=== PATIENT | male | born 1950 | race Caucasian/White ===

== ENCOUNTER 2021-08-06 00:11 | Day surgery (SDC) | payer MEDICARE, SELFPAY ==
[2021-07-24 14:46] VITALS: BMI 39.2
--- NOTE | 2021-08-01 10:14 | PC.NURSE ---
FOLLOWED UP WITH PATIENT REGARDING OFFICE VISIT ON 07/24/21 WITH CARDIOLOGY AND SYMPTOMS OF CHF. PT STATES HE IS FEELING MUCH BETTER, EDEMA IN HIS FEET AND LEGS IS GONE, HIS SOB IS BACK TO BASELINE FOR HIM. INSTRUCTED PT THAT IF HE HAS SYMPTOMS THIS WEEKEND BEFORE STARTING HIS PREP TO CALL AND CANCEL APPT. AND SEE CARDIOLOGY FOR FURTHER TREATMENT AND INSTRUCTIONS FOR HOW TO HANDLE PREP FOR FUTURE COLONOSCOPY PREP. PT IS OKAYED TO HOLD XARELTO FOR 2 DAYS PRIOR TO PROCEDURE- LAST DOSE ON 08/03/21- PT VERBALIZES UNDERSTANDING.
--- NOTE | 2021-08-02 11:54 | SUR.PREOP ---
08/02/21 1135 Patient's chart discussed with Dr. Keith regarding the patient's low EF and him being seen on 07/24 at the Application Coordinator's office and patient in CHF but has since been treating and doing well. Dr. Keith ok for pt to proceed with procedure on Friday. No further orders received.
[2021-08-06 09:56] VITALS: BP 148/65; PULSE 62; RESP 20; TEMP 36.3; O2SAT 96; BMI 36.8
[2021-08-06] MEDS: LACTATED RINGERS 1,000 ML 150 ML IV CONT (10:13)
[2021-08-06 10:14] LABS: Glucose Point of Care 225 mg/dl (65-105)
--- NOTE | 2021-08-06 10:34 | WPDANESEPPF ---
Anes - Initial Pre Proc Eval Procedure: Operation Date: 08/06/21 11:30 Proposed Procedures p Screening Colonoscopy - Enrique Fall MD Date/Time: 08/06/21 10:34 Surgeon: Enrique Fall MD Pre Op Diagnosis: family hx of colon ca Patient Data Age: 71 Gender: M Height: 1.83 m Weight: 123.2 kg Last Vital Signs Temp 97.3 F L 08/06/21 09:56 Pulse 62 08/06/21 09:56 Resp 20 08/06/21 09:56 BP 148/65 H 08/06/21 09:56 Pulse Ox 96 08/06/21 09:56 Allergies Allergy/AdvReac Type Severity Reaction Status Date / Time No Known Allergies Allergy Verified 08/06/21 09:55 Home Medications Medication Instructions Recorded Confirmed Type nitroglycerin 0.4 mg sublingual 0.4 mg SUBLINGUAL Q5M PRN #100 11/21/20 07/24/21 Rx tablet tablet carvedilol 6.25 mg tablet See Rx Instructions .ROUTE 01/26/21 07/24/21 Rx .COMPLEX #180 tablet duloxetine 60 mg capsule,delayed See Rx Instructions .ROUTE 01/26/21 07/24/21 Rx release .COMPLEX #90 cap furosemide 40 mg tablet 40 mg PO QAM 02/14/21 07/24/21 History potassium chloride 20 mEq 20 meq PO DAILY 02/14/21 07/24/21 History tablet,extended release rivaroxaban 20 mg tablet 20 mg PO DAILY 02/14/21 07/24/21 History valsartan 80 mg tablet 80 mg PO DAILY 02/14/21 07/24/21 History atorvastatin 40 mg tablet See Rx Instructions .ROUTE 02/16/21 07/24/21 Rx .COMPLEX #90 tablet metformin 1,000 mg tablet See Rx Instructions .ROUTE 03/26/21 07/24/21 Rx .COMPLEX #180 tablet insulin glargine 100 unit/mL (3 See Rx Instructions .ROUTE 05/16/21 07/24/21 Rx mL) subcutaneous pen .COMPLEX #90 ml insulin regular human 100 unit/mL See Rx Instructions .ROUTE 05/21/21 07/24/21 Rx (3 mL) subcutaneous pen .COMPLEX #30 ml pen needle, diabetic 32 gauge x #400 ea 05/21/21 Rx albuterol sulfate [ProAir 2 inh INHALATION Q4-6H PRN 07/24/21 07/24/21 History RespiClick] amiodarone 200 mg PO DAILY 07/24/21 07/24/21 History spironolactone 25 mg PO DAILY 08/01/21 08/01/21 History Laboratory Tests 08/06/21 10:05 POC Capillary Glucose 225 mg/dl H mg/dl (65-105) Patient hx anesthesia problems: none Family hx anesthesia problems: none Results Review: All pre-operative results and documents have been reviewed as part of the pre-operative evaluation. [facility] Past Medical History Medical History CAD (coronary artery disease) Diabetes mellitus HLD (hyperlipidemia) Family History Family History Mother Patient's mother is , Onset Age: 55 Father Family history of malignant neoplasm, Onset Age: 63 Social History Social History Smoking packs per day: 0.5 Smoking cigarettes per day: 10.0 Years smoked: 10 Smoking pack-years: 5.00 Smoking status: Former smoker Tobacco type: cigarettes Smoking end date: 06/09/06 Alcohol intake: current Substance use: never Substance use type: does not use Living arrangements: with family Spiritual care concerns: No Anes - Eval Final PreProcedure Day of Procedure 08/06/21 10:34 Patient weight: obese Heart: regular rate and rhythm Lungs: clear to auscultation Airway: Mallampati scale class III Neurological: alert and oriented Last oral intake: >/= 8 hours ASA classification: IV Emergent: no Anesthetic plan: proceed Anesthesia type and monitoring: general GIVS and standard monitoring Results Review: All pre-operative results and documents have been reviewed as part of the pre-operative evaluation. Informed Consent: The patient's anesthetic plan and its attendant risks and benefits were discussed with the patient/family/POA. Questions were solicited and answers provided to the satisfaction of the patient/family/POA.
--- NOTE | 2021-08-06 10:44 | PM.HPGS ---
History of Present Illness History of Present Illness Consent: Risks, benefits, and alternatives have been discussed and questions answered. Patient agrees to proceed with procedure. Chief complaint: family hx of colon ca Narrative: Cuauhtemoc Magaña is a 71 year old male with last colonoscopy in 2016, father had colon cancer. Review of Systems Constitutional: Constitutional: Denies headache(s) and Denies weakness Eyes: Eyes: Denies blurry vision ENT: Reports Normal hearing present, Denies headache(s) and Denies neck pain Cardiovascular: Cardiovascular: Denies chest pain and Denies dyspnea Respiratory: Respiratory: Denies dyspnea Gastrointestinal: Gastrointestinal: Reports no additional gastrointestinal complaints Genitourinary: Genitourinary: Denies dysuria Musculoskeletal: Musculoskeletal: Denies neck pain Integumentary/Breasts: Skin/Breast: Denies dry skin Neurologic: Reports Normal hearing present, Denies headache(s) and Denies weakness Psychiatric: Psychiatric: Denies anxiety Endocrine: Endocrine: Denies change in body appearance Hematologic/Lymphatic: Hematologic/Lymphatic: Denies easy bleeding Allergic/Immunologic: Allergic/Immunologic: Denies urticaria PMF Past Medical History Medical History (Updated 08/06/21 @ 10:45 by Enrique Fall MD) CAD (coronary artery disease) Diabetes mellitus Family history of colon cancer in father HLD (hyperlipidemia) Family History Family History Mother Patient's mother is , Onset Age: 55 Father Family history of malignant neoplasm, Onset Age: 63 Social History Social History Smoking packs per day: 0.5 Smoking cigarettes per day: 10.0 Years smoked: 10 Smoking pack-years: 5.00 Smoking status: Former smoker Tobacco type: cigarettes Smoking end date: 06/09/06 Alcohol intake: current Substance use: never Substance use type: does not use Living arrangements: with family Spiritual care concerns: No Meds Home Medications and Allergies Home Medications Medication Instructions Recorded Confirmed Type nitroglycerin 0.4 mg sublingual 0.4 mg SUBLINGUAL Q5M PRN #100 11/21/20 07/24/21 Rx tablet tablet carvedilol 6.25 mg tablet See Rx Instructions .ROUTE 01/26/21 07/24/21 Rx .COMPLEX #180 tablet duloxetine 60 mg capsule,delayed See Rx Instructions .ROUTE 01/26/21 07/24/21 Rx release .COMPLEX #90 cap furosemide 40 mg tablet 40 mg PO QAM 02/14/21 07/24/21 History potassium chloride 20 mEq 20 meq PO DAILY 02/14/21 07/24/21 History tablet,extended release rivaroxaban 20 mg tablet 20 mg PO DAILY 02/14/21 07/24/21 History valsartan 80 mg tablet 80 mg PO DAILY 02/14/21 07/24/21 History atorvastatin 40 mg tablet See Rx Instructions .ROUTE 02/16/21 07/24/21 Rx .COMPLEX #90 tablet metformin 1,000 mg tablet See Rx Instructions .ROUTE 03/26/21 07/24/21 Rx .COMPLEX #180 tablet insulin glargine 100 unit/mL (3 See Rx Instructions .ROUTE 05/16/21 07/24/21 Rx mL) subcutaneous pen .COMPLEX #90 ml insulin regular human 100 unit/mL See Rx Instructions .ROUTE 05/21/21 07/24/21 Rx (3 mL) subcutaneous pen .COMPLEX #30 ml pen needle, diabetic 32 gauge x #400 ea 05/21/21 Rx albuterol sulfate [ProAir 2 inh INHALATION Q4-6H PRN 07/24/21 07/24/21 History RespiClick] amiodarone 200 mg PO DAILY 07/24/21 07/24/21 History spironolactone 25 mg PO DAILY 08/01/21 08/01/21 History Allergies Allergy/AdvReac Type Severity Reaction Status Date / Time No Known Allergies Allergy Verified 08/06/21 09:55 Vital Signs Vital Signs - 24 hr 08/06/21 09:56 Temperature 97.3 F L Pulse Rate 62 Respiratory Rate 20 Blood Pressure 148/65 H Pulse Oximetry 96 Exam Const: General: comfortable and no acute distress HENMT: General nose exam: Normal nares present Eyes:
[2021-08-06 11:10] VITALS: BP 127/67; PULSE 53; RESP 20; O2SAT 99
[2021-08-06 11:20] VITALS: BP 119/54; PULSE 46; RESP 20; O2SAT 97
[2021-08-06 11:30] VITALS: BP 133/58; PULSE 51; RESP 18; O2SAT 100
[2021-08-06 11:33] LABS: Glucose Point of Care 197 mg/dl (65-105)
== END 2021-08-06 11:49 | disposition home or self-care (01) ==
PROVIDERS: PCP Emergency Medicine; Visit Provider Internal Medicine Gastroenterology
PROC: 0DJD8ZZ Inspection of Lower Intestinal Tract, Via Natural or Artificial Opening Endoscopic (ICD-10-PCS; CPT 45378; principal; 2021-08-06 11:30)
DX: Z12.11 Encounter for screening for malignant neoplasm of colon (principal); Z80.0 Family history of malignant neoplasm of digestive organs; D12.2 Benign neoplasm of ascending colon; I25.10 Atherosclerotic heart disease of native coronary artery without angina pectoris; E11.9 Type 2 diabetes mellitus without complications; E78.5 Hyperlipidemia, unspecified; Z87.891 Personal history of nicotine dependence; Z79.01 Long term (current) use of anticoagulants; Z79.84 Long term (current) use of oral hypoglycemic drugs; Z79.4 Long term (current) use of insulin; Z79.51 Long term (current) use of inhaled steroids; E66.9 Obesity, unspecified; Z68.36 Body mass index [BMI] 36.0-36.9, adult
CPT/HCPCS: 45385; 82948; 88305; J2704; J7120

== ENCOUNTER 2021-10-11 08:08 | Outpatient (CLI) | payer MEDICARE, SELFPAY ==
--- NOTE | 2021-10-16 21:54 | WPDSLEEPSTUD ---
Sleep Study Date of Study: 10/11/21 Ordering Provider: Ronny Matias APRN Interpreting Physician: Piper Francis MD Sleep Study Type: BiPAP Titration Height: 1.8 m Weight: 122.47 kg Body Mass Index: 37.6 Neck Circumference (inches): 18.5 [place]: 3 Reason for Sleep Study Snoring, excessive fatigue * Home Sleep Test - 09/11/2021 at [facility], AHI is 41.2, lowest saturation 79%, 80.5 minute spent below 89%. * July 2021, echo showed EF 30-35%, grade 3 diastolic dysfunction, moderate pulmonary hypertension RVSP 66 mm Hg. Sleep History Cuauhtemoc Magaña is a 71 year old man with loud snoring. He frequently awakens from sleep feeling short of breath. He rarely awakens at night with heartburn, belching or coughing. He rarely snores. He rarely snores loudly enough that others complain about it. He frequently has trouble sleeping with a cold. He occasionally wakes up gasping for breath at night. He occasionally has breathing problems at night observed by others. He does not sweat excessively night. He occasionally notices his heart pounding or beating irregularly at night. He occasionally falls asleep during the day, rarely falls asleep involuntarily, never falls asleep while driving. He does not have daytime difficulties due to excessive sleepiness. He rarely has loss of muscle tone with strong emotion. He rarely feels paralyzed on waking or falling asleep. He occasionally has vivid dreamlike scenes upon awakening or falling asleep. Does not feel afraid to go to sleep. He does not have nightmares. He occasionally remembers his dreams. He occasionally has racing thoughts. He rarely feels sad or depressed. He occasionally has anxiety. He occasionally has muscular tension and occasionally notices parts of his body jerking. He occasionally kicks at night. He occasionally has crawling and aching feelings in his legs. He rarely has any kind of leg pain at night. He does not have morning jaw pain. He does not grind his teeth during sleep. He rarely is bothered by pain during the day. He rarely is awakened by pain at night. He occasionally wakes up feeling stiff in the morning with sore achy muscles, rarely wakes up with pain in the neck and spine. He has memory problems, fatigue and dizziness. Normal bedtime is between 8:00 p.m. and 10:00 p.m. falling asleep within 1/2 hour, waking 4-5 times at night to watch television. The initial episode of waking occurs after 2 hours of sleep. When he does awaken during the night he stays awake for a couple of hours. He wakes in the morning between 7 and 8:00 a.m.. He estimates getting somewhere between 4 and 5 hours of sleep on average. His weekend schedule is the same. He takes naps in the afternoon or evening. A short nap may be refreshing. He is usually drowsy on waking for 3 hours or longer. He reports a 20 lb weight gain over the last year. Habits: Quit tobacco 25 years ago. No caffeine, alcohol or recreational drugs. [facility] Past Medical History Medical History (Updated 10/16/21 @ 22:24 by Piper Francis MD) Afib CAD (coronary artery disease) CHF (congestive heart failure) Diabetes mellitus Family history of colon cancer in father HLD (hyperlipidemia) Obstructive sleep apnea Surgical History Surgical History (Updated 10/16/21 @ 22:06 by Piper Francis MD) S/P CABG (coronary artery bypass graft) Family History Family History Mother Patient's mother is , Onset Age: 55 Father Family history of malignant neoplasm, Onset Age: 63 Social History Social History Smoking packs per day: 0.5 Smoking cigarettes per day: 10.0 Years smoked: 10 Smoking pack-years: 5.00 Smoking status: Former smoker Tobacco type: cigarettes Smoking end date: 06/09/06 Alcohol intake: current Substance use: never Subst
[2021-10-16 22:25] VITALS: BMI 37.6
== END 2021-10-12 07:08 | disposition home or self-care (01) ==
LOC: ANHCSM 08:09
PROVIDERS: PCP Emergency Medicine; Visit Provider Nurse Practitioner Family
DX: G47.33 Obstructive sleep apnea (adult) (pediatric) (principal)
CPT/HCPCS: 95811

== ENCOUNTER 2021-10-24 10:21 | Outpatient (CLI) | payer MEDICARE, SELFPAY ==
[2021-10-24 10:15] VITALS: PULSE 51; O2SAT 96
[2021-10-24 10:20] VITALS: PULSE 66; O2SAT 90
[2021-10-24 10:30] VITALS: PULSE 52; O2SAT 95
--- NOTE | 2021-10-24 11:18 | HOMEO2EVAL ---
Evaluation was performed at [facility] Home Oxygen Evaluation RC: Home Oxygen (O2) Evaluation Start: 10/24/21 11:14 Freq: Status: Active Protocol: RPE Activity Type Activity Date Activity User E-Sign Co-Sign Detail Recorded Client Recorded Date Recorded By Document 10/24/21 10:15 [email or web address] [email or web address] 10/24/21 11:18 DJO Document 10/24/21 10:20 [email or web address] [email or web address] 10/24/21 11:18 DJO Document 10/24/21 10:30 [email or web address] [email or web address] 10/24/21 11:18 DJO 10/24/21 10/24/21 10/24/21 10:15 10:20 10:30 Home O2 Evaluation Test Phase Resting Exercise Resting Oxygen Delivery Room Air Room Air Room Air Pulse Oximetry (90-100 %) 96 90 95 Pulse Rate (60-100 beats/min) 51 L 66 52 L Activity Tolerance Poor Ambulation Distance (feet) 25 Ambulation Distance (meters) 7.61 Home Oxygen Evaluation Comments PT CAME IN WHEELCHAIR AND WAS ONLY ABLE TO WALK 25 FEET WHEN PT FELT DIZZY, HIS LEGS WERE WEEK AND ALMOST FELL. PT RETURNED TO WHEELCHAIR Treatment Charges O2 Evaluation - Outpatient
--- NOTE | 2021-10-25 09:53 | WPDPFTINT ---
PFT Procedure Performed PFT Procedure Performed Spirometry with Pre/Post Bronchodilator Plethysmography (Lung Vol) Diffusing Cap (DLCO) Flow Vol Loop PFT Interpretation Lung volumes were measured with the body plethysmography method. The diminished lung volumes are indicative of restrictive respiratory disease. The normal RV in this setting may suggest underlying neuromuscular weakness. Clinical correlation advised. Spirometry showed diminished expiratory flow rates and a diminished FEV1 to FVC ratio of 66% consistent with obstructive airway disease. Following administration of a bronchodilator there was no significant increase in expiratory flow rates. Lung diffusion capacity is moderately reduced at 51% predicted. impression: Combined restrictive respiratory and obstructive airway disease with no response to bronchodilators on this testing. Moderately reduced lung diffusion capacity.
== END 2021-10-24 10:22 | disposition home or self-care (01) ==
LOC: ANHPFT 10:22
PROVIDERS: PCP Emergency Medicine; Visit Provider Nurse Practitioner Family
DX: R06.00 Dyspnea, unspecified (principal); R94.2 Abnormal results of pulmonary function studies
CPT/HCPCS: 94060; 94618; 94726; 94729

== ENCOUNTER 2023-07-08 11:37 | Outpatient (CLI) | payer MEDICARE, SELFPAY ==
[2023-07-08 12:13] LABS: Hematocrit 32.8 % (42.0-52.0); Hemoglobin 9.7 g/dL (14.0-18.0); Mean Corpuscular HGB Conc 29.6 g/dl (32-36); Mean Corpuscular Volume 81.2 fl (80-100); Mean Platelet Volume 10.4 fl (7.4-10.4); Platelet Count Result 226 k/mm3 (150-375); Red Blood Count 4.04 M/mm3 (4.6-6.20); Red Cell Distribution Width 19.1 % (11.5-14.5); White Blood Count 9.7 K/mm3 (4.5-10.0)
[2023-07-08 12:30] LABS: Hemoglobin A1C 11.7 % (<5.7)
[2023-07-08 12:33] LABS: LDL Cholesterol Direct 98 mg/dL
[2023-07-08 12:44] LABS: Vitamin D 25 Hydroxy 29.1 ng/mL
[2023-07-08 12:52] LABS: Prostate Specific Antigen 1.3 ng/mL (< OR = 4.0)
[2023-07-08 13:06] LABS: Alanine Aminotransferase 31 U/L (6-50); Albumin Level 3.9 g/dL (3.5-5.1); Alkaline Phosphatase 149 U/L (38-126); Anion Gap 14 mmol/L (8-16); Aspartate Amino Transferase 40 U/L (17-59); Bilirubin,Total 1.4 mg/dL (0.2-1.3); Blood Urea Nitrogen 59 mg/dL (9-20); Calcium 8.9 mg/dL (8.4-10.2); Carbon Dioxide 32 mmol/L (22-30); Chloride 80 mmol/L (98-107); Cholesterol 150 mg/dL (0-200); Estimated Glomerular Filt Rate 40; Glucose 580 mg/dL (65-110); HDL Direct 25 mg/dL; Sodium 126 mmol/L (137-145); Triglycerides 174 mg/dL (<150)
== END 2023-07-08 11:38 | disposition home or self-care (01) ==
PROVIDERS: PCP Emergency Medicine; Visit Provider Emergency Medicine
DX: R53.83 Other fatigue (principal); E78.5 Hyperlipidemia, unspecified; I25.10 Atherosclerotic heart disease of native coronary artery without angina pectoris; Z12.5 Encounter for screening for malignant neoplasm of prostate; E55.9 Vitamin D deficiency, unspecified; E11.9 Type 2 diabetes mellitus without complications
CPT/HCPCS: 36415; 80053; 80061; 82306; 83036; 84153; 85027; G0103

== ENCOUNTER 2023-07-08 13:47 | Emergency (ER) | payer MEDICARE, SELFPAY ==
[2023-07-08] VITALS (18 sets, daily range): BP systolic 107–129; BP diastolic 71–89; PULSE 56–85; RESP 16–20; TEMP 36.3–36.7; O2SAT 91–100
[2023-07-08 13:57] LABS: Glucose Point of Care 474 mg/dl (65-105)
[2023-07-08 14:25] LABS: Appearance Urine Clear (Clear); Bilirubin Urine Negative (Negative); Blood Urine Negative (Negative); Color Urine Yellow (Yellow); Glucose Urine UA 3+ mg/dL (Negative); Ketones Urine Negative (Negative); Leukocyte Esterase Ur Negative LEU/UL (Negative); Nitrate Urine Negative (Negative); Protein Urine Negative (Negative); Specific Grav Ur 1.014 (1.001-1.035); pH Urine 6.5 (5.0-9.0)
[2023-07-08 14:26] LABS: Basophils Absolute Auto 0.1 K/mm3 (0.0-0.1); Basophils Percent Auto 0.8 % (0.2-1.2); Eosinophils Absolute Auto 0.3 K/mm3 (0-0.3); Eosinophils Percent Auto 2.7 % (0-4.4); Hematocrit 33.6 % (42.0-52.0); Hemoglobin 9.9 g/dL (14.0-18.0); Immature Granulocyte Absolute 0.07 K/mm3 (0.00-0.031); Immature Granulocyte Percent A 0.8 % (0-0.5); Lymphocytes Absolute Auto 1.42 K/mm3 (0.9-3.2); Lymphocytes Percent Auto 15.5 % (18.3-44.2); Mean Corpuscular HGB Conc 29.5 g/dl (32-36); Mean Corpuscular Hemoglobin 24.2 pg (26-34); Mean Corpuscular Volume 82.2 fl (80-100); Mean Platelet Volume 10.8 fl (7.4-10.4); Monocytes Absolute Auto 1.5 K/mm3 (0.1-0.6); Monocytes Percent Auto 16.5 % (2.6-8.5); Neutrophils Absolute Auto 5.9 K/mm3 (1.3-6.7); Neutrophils Percent Auto 63.7 % (45.5-73.1); Platelet Count Result 237 k/mm3 (150-375); Red Blood Count 4.09 M/mm3 (4.6-6.20); Red Cell Distribution Width 19.4 % (11.5-14.5); White Blood Count 9.2 K/mm3 (4.5-10.0)
[2023-07-08 14:31] LABS: Alanine Aminotransferase 33 U/L (6-50); Albumin Level 4.2 g/dL (3.5-5.1); Alkaline Phosphatase 136 U/L (38-126); Anion Gap 17 mmol/L (8-16); Aspartate Amino Transferase 40 U/L (17-59); Bilirubin,Total 1.3 mg/dL (0.2-1.3); Blood Urea Nitrogen 59 mg/dL (9-20); Calcium 9.1 mg/dL (8.4-10.2); Carbon Dioxide 30 mmol/L (22-30); Chloride 80 mmol/L (98-107); Estimated CRCL calculation 47 ml/min; Estimated Glomerular Filt Rate 40; Glucose 473 mg/dL (65-110); Magnesium 2.1 mg/dL (1.6-2.3); Phosphorus 4.8 mg/dL (2.5-4.5); Potassium 3.8 mmol/L (3.4-5.0); Sodium 127 mmol/L (137-145)
[2023-07-08 14:33] LABS: Add Urine Microscopic? NO
[2023-07-08 14:35] LABS: Beta-Hydroxybutyrate/Acetoacetate 0.21 mmol/L (0.02-0.27)
[2023-07-08 14:56] LABS: Platelet Estimate Adequate (Adequate)
[2023-07-08 14:57] LABS: Anisocytosis 3+ (NORMAL); Hypochromasia 1+ (NORMAL); Macrocytosis 1+ (NORMAL); Schistocytes None Seen (NORMAL)
[2023-07-08] MEDS: INSULIN HUMAN REGULAR (*BKC) 100 UNITS/ML 8 UNITS IV PUSH (16:21)
[2023-07-08] MEDS: SODIUM CHLORIDE 0.9% IV 1,000 ML 999 ML IV CONT (16:21)
--- NOTE | 2023-07-08 16:24 | ED.GENADULT ---
HPI - General Adult General Chief complaint: Unspecified Stated complaint: high gluclose level Time Seen by Provider: 07/08/23 15:09 History of Present Illness HPI narrative: 73-year-old male with history of type 2 diabetes presented to the emergency department for evaluation of hyperglycemia. Patient reports over the course of the last month he has been having blood sugars that run in the 4 in 500s. Patient hemoglobin C indicates a average blood glucose of 315. Patient had follow-up with primary care physician today and had outpatient labs indicating hyperglycemia and patient was instructed to present to the emergency department. Upon arrival to the ED patient has no complaint. Patient is requesting discharge home. Related Data Home Medications Medication Instructions Recorded Confirmed aspirin 81 mg tablet,delayed 81 mg PO DAILY 03/27/23 07/08/23 release (Adult Aspirin Regimen) duloxetine 60 mg capsule,delayed 60 mg PO DAILY 04/16/23 07/08/23 release potassium chloride 20 mEq 20 meq PO BID 04/16/23 07/08/23 tablet,extended release(part/cryst) (Klor-Con M) triamcinolone acetonide 0.5 % 1 applic topical TID PRN Rash 04/16/23 07/08/23 topical ointment bumetanide 2 mg tablet 2 mg PO BID 05/09/23 07/08/23 guaifenesin 600 mg tablet, 600 mg PO BID 05/09/23 07/08/23 extended release 12 hr metoprolol tartrate 25 mg tablet 25 mg PO TID 05/09/23 07/08/23 pantoprazole 40 mg tablet,delayed 40 mg PO BID 05/09/23 07/08/23 release polyethylene glycol 3350 4 gram 4 g PO DAILY PRN 05/09/23 07/08/23 oral powder packet rivaroxaban 20 mg tablet (Xarelto) 20 mg PO QPM 05/09/23 07/08/23 sucralfate 1 gram tablet 1 g PO QID 05/09/23 07/08/23 metolazone 5 mg tablet 5 mg PO .COMPLEX 07/08/23 spironolactone 25 mg tablet 25 mg PO DAILY 07/08/23 Allergies Allergy/AdvReac Type Severity Reaction Status Date / Time No Known Allergies Allergy Verified 07/08/23 11:11 Review of Systems Review of Systems: All systems reviewed & are unremarkable except as noted in HPI and below PMFSH Past Medical History Medical History Afib CAD (coronary artery disease) CHF (congestive heart failure) Constipation Diabetes mellitus Family history of colon cancer in father HLD (hyperlipidemia) Low iron stores Obstructive sleep apnea Surgical History Surgical History S/P CABG (coronary artery bypass graft) Family History Family History Mother Patient's mother is , Onset Age: 55 Father Family history of malignant neoplasm, Onset Age: 63 Social History Social History Smoking packs per day: 0.5 Smoking cigarettes per day: 10.0 Years smoked: 10 Smoking pack-years: 5.00 Smoking status: Former smoker Tobacco type: cigarettes Smoking end date: 06/09/06 Alcohol intake: current Substance use: never Substance use type: does not use Lack of Transportation: No Lack of Food: Never True Current Housing: I Have Housing Concerned About Future Housing: No Difficulty Paying Gas/Electric Bills: No Difficulty Paying for Meds: No Currently Unemployed: No Education: Associate Degree Difficulty w/ Childcare or Family Care: No Living arrangements: with family Occupation/Education: retired Additional occupation/education comments: 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 Denies any occupational exposure. Spiritual care concerns: No Exam Narrative: APPEARANCE: Well appearing, no pain, no distress, well-nourished. HEAD: normocephalic, atraumatic. EYES: PERRLA/EOMI, conjunctivae clear. NOSE: Normal no drainage EARS:TMS clear with good light reflex. THROAT: Pharynx clear, no exudate. NECK: Supple. No adenopathy,
[2023-07-08 16:27] LABS: Glucose Point of Care 423 mg/dl (65-105)
[2023-07-08 16:38] LABS: Hemoglobin A1C 11.4 % (<5.7)
[2023-07-08] MEDS: ACETAMINOPHEN 500 MG TABLET 1000 MG PO (17:01)
[2023-07-08 17:56] LABS: Glucose Point of Care 333 mg/dl (65-105)
== END 2023-07-08 18:38 | disposition home or self-care (01) ==
PROVIDERS: Emergency Medicine; Emergency Provider Emergency Medicine; PCP Emergency Medicine
DX: E11.65 Type 2 diabetes mellitus with hyperglycemia (principal); I48.91 Unspecified atrial fibrillation; I50.9 Heart failure, unspecified; I25.10 Atherosclerotic heart disease of native coronary artery without angina pectoris; E78.5 Hyperlipidemia, unspecified; Z79.82 Long term (current) use of aspirin; Z79.899 Other long term (current) drug therapy; Z79.01 Long term (current) use of anticoagulants; Z87.891 Personal history of nicotine dependence
CPT/HCPCS: 36415; 80053; 80061; 81003; 82010; 82306; 82948; 83036; 83735; 84100; 84153; 85025; 85027; 96361; 96374; 99284; A9270; G0103; J1815; J7030

== ENCOUNTER 2023-07-21 09:25 | Outpatient (CLI) | payer MEDICARE, SELFPAY ==
[2023-07-21 09:56] LABS: Alanine Aminotransferase 28 U/L (6-50); Albumin Level 3.7 g/dL (3.5-5.1); Alkaline Phosphatase 146 U/L (38-126); Anion Gap 7 mmol/L (8-16); Aspartate Amino Transferase 38 U/L (17-59); Bilirubin,Total 1.8 mg/dL (0.2-1.3); Blood Urea Nitrogen 73 mg/dL (9-20); Calcium 8.8 mg/dL (8.4-10.2); Carbon Dioxide 36 mmol/L (22-30); Chloride 81 mmol/L (98-107); Estimated Glomerular Filt Rate 37; Glucose 301 mg/dL (65-110); Potassium 3.4 mmol/L (3.4-5.0); Sodium 124 mmol/L (137-145)
[2023-07-21 10:03] LABS: NT Pro B Type Natriuretic Pept 6470 pg/mL (19.9-100)
== END 2023-07-21 09:26 | disposition home or self-care (01) ==
LOC: ANHLAB 09:27
PROVIDERS: PCP Emergency Medicine; Visit Provider Emergency Medicine
DX: E78.5 Hyperlipidemia, unspecified (principal); I50.22 Chronic systolic (congestive) heart failure
CPT/HCPCS: 36415; 80053; 83880

== ENCOUNTER 2023-07-21 17:49 | Emergency (ER) | payer MEDICARE, SELFPAY ==
[2023-07-21 17:51] VITALS: BP 105/67; PULSE 106; RESP 16; TEMP 36.7; O2SAT 90
[2023-07-21 18:02] VITALS: BP 97/68; PULSE 84; RESP 16; TEMP 36.7; O2SAT 99
--- NOTE | 2023-07-21 18:13 | ECG_ITS ---
Measurements Intervals [place] Rate: 81 P: -89 LA: 217 QRS: -78 QRSD: 145 T: 86 QT: 418 QTc: 486 Interpretive Statements ELECTRONIC ATRIAL PACEMAKER ELECTRONIC VENTRICULAR PACEMAKER ABNORMAL RHYTHM ECG NO PREVIOUS ECG AVAILABLE FOR COMPARISON Electronically Signed On 07-22-2023 14:56:22 [employer] by Jackie Leon M.D.
[2023-07-21 18:17] VITALS: BP 110/73; PULSE 80; RESP 18; TEMP 36.7; O2SAT 100
[2023-07-21 18:21] LABS: Basophils Absolute Auto 0.1 K/mm3 (0.0-0.1); Basophils Percent Auto 0.6 % (0.2-1.2); Eosinophils Absolute Auto 0.2 K/mm3 (0-0.3); Eosinophils Percent Auto 1.7 % (0-4.4); Hematocrit 28.1 % (42.0-52.0); Hemoglobin 8.1 g/dL (14.0-18.0); Immature Granulocyte Absolute 0.14 K/mm3 (0.00-0.031); Immature Granulocyte Percent A 1.3 % (0-0.5); Lymphocytes Absolute Auto 1.86 K/mm3 (0.9-3.2); Lymphocytes Percent Auto 17.9 % (18.3-44.2); Mean Corpuscular HGB Conc 28.8 g/dl (32-36); Mean Corpuscular Hemoglobin 23.4 pg (26-34); Mean Corpuscular Volume 81.2 fl (80-100); Mean Platelet Volume 10.9 fl (7.4-10.4); Monocytes Absolute Auto 2.1 K/mm3 (0.1-0.6); Monocytes Percent Auto 20.2 % (2.6-8.5); Neutrophils Percent Auto 58.3 % (45.5-73.1); Nucleated Red Blood Cells Perc 0.3 % (0.0-0.2); Platelet Count Result 327 k/mm3 (150-375); Red Blood Count 3.46 M/mm3 (4.6-6.20); White Blood Count 10.4 K/mm3 (4.5-10.0)
[2023-07-21 18:27] VITALS: PULSE 83
[2023-07-21 18:32] VITALS: BP 118/73; PULSE 80; RESP 16; TEMP 36.4; O2SAT 100
[2023-07-21 18:36] LABS: INR 2.9; Partial Thromboplastin Time 39.1 SECONDS (22.3-36.8); Prothrombin Time 32.2 Seconds (11.1-14.7)
[2023-07-21 18:47] LABS: Hypochromasia 1+ (NORMAL); Platelet Estimate Adequate (Adequate); Schistocytes None Seen (NORMAL)
[2023-07-21 18:48] LABS: Anisocytosis 3+ (NORMAL); Macrocytosis 1+ (NORMAL)
[2023-07-21 19:19] LABS: Alanine Aminotransferase 28 U/L (6-50); Albumin Level 3.9 g/dL (3.5-5.1); Alkaline Phosphatase 138 U/L (38-126); Anion Gap 9 mmol/L (8-16); Aspartate Amino Transferase 47 U/L (17-59); Bilirubin,Total 1.7 mg/dL (0.2-1.3); Blood Urea Nitrogen 77 mg/dL (9-20); Calcium 8.8 mg/dL (8.4-10.2); Carbon Dioxide 34 mmol/L (22-30); Chloride 81 mmol/L (98-107); Estimated CRCL calculation 44 ml/min; Estimated Glomerular Filt Rate 37; Glucose 301 mg/dL (65-110); Potassium 3.4 mmol/L (3.4-5.0); Sodium 124 mmol/L (137-145)
--- NOTE | 2023-07-21 20:37 | ED.GENADULT ---
HPI - General Adult General Chief complaint: Recheck/Abnormal Lab/Rx Stated complaint: ABN blood work Time Seen by Provider: 07/21/23 19:01 History of Present Illness HPI narrative: this is a 73-year-old male with of CHF on multiple diuretics presenting for abnormal labs. Screening lab work from his primary care physician is hyponatremic. He was then sent to the emergency department for evaluation. Patient is asymptomatic at this time has no complaints. Related Data Home Medications Medication Instructions Recorded Confirmed aspirin 81 mg tablet,delayed 81 mg PO DAILY 03/27/23 07/08/23 release (Adult Aspirin Regimen) duloxetine 60 mg capsule,delayed 60 mg PO DAILY 04/16/23 07/08/23 release potassium chloride 20 mEq 20 meq PO BID 04/16/23 07/08/23 tablet,extended release(part/cryst) (Klor-Con M) triamcinolone acetonide 0.5 % 1 applic topical TID PRN Rash 04/16/23 07/08/23 topical ointment bumetanide 2 mg tablet 2 mg PO BID 05/09/23 07/08/23 guaifenesin 600 mg tablet, 600 mg PO BID 05/09/23 07/08/23 extended release 12 hr metoprolol tartrate 25 mg tablet 25 mg PO TID 05/09/23 07/08/23 pantoprazole 40 mg tablet,delayed 40 mg PO BID 05/09/23 07/08/23 release polyethylene glycol 3350 4 gram 4 g PO DAILY PRN 05/09/23 07/08/23 oral powder packet rivaroxaban 20 mg tablet (Xarelto) 20 mg PO QPM 05/09/23 07/08/23 sucralfate 1 gram tablet 1 g PO QID 05/09/23 07/08/23 metolazone 5 mg tablet 5 mg PO .COMPLEX 07/08/23 spironolactone 25 mg tablet 25 mg PO DAILY 07/08/23 Allergies Allergy/AdvReac Type Severity Reaction Status Date / Time No Known Allergies Allergy Verified 07/08/23 11:11 [facility] Past Medical History Medical History Afib CAD (coronary artery disease) CHF (congestive heart failure) Constipation Diabetes mellitus Family history of colon cancer in father HLD (hyperlipidemia) Low iron stores Obstructive sleep apnea Surgical History Surgical History S/P CABG (coronary artery bypass graft) Family History Family History Mother Patient's mother is , Onset Age: 55 Father Family history of malignant neoplasm, Onset Age: 63 Social History Social History Smoking packs per day: 0.5 Smoking cigarettes per day: 10.0 Years smoked: 10 Smoking pack-years: 5.00 Smoking status: Former smoker Tobacco type: cigarettes Smoking end date: 06/09/06 Alcohol intake: current Substance use: never Substance use type: does not use Lack of Transportation: No Lack of Food: Never True Current Housing: I Have Housing Concerned About Future Housing: No Difficulty Paying Gas/Electric Bills: No Difficulty Paying for Meds: No Currently Unemployed: No Education: Associate Degree Difficulty w/ Childcare or Family Care: No Living arrangements: with family Occupation/Education: retired Additional occupation/education comments: 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 Denies any occupational exposure. Spiritual care concerns: No Exam Narrative: APPEARANCE: No apparent distress. Head: atraumatic. EYES: EOMI, NOSE: Atraumatic NECK: Trachea midline RESPIRATORY: No increased rate of breathing CARDIOVASCULAR: RRR, +1 edema lower extremities ABDOMINAL: Non-distended MUSCULOSKELETAl: No obvious deformities NEURO: Alert. Moving 4/4 extremities SKIN:: Warm, dry. Normal color PSYCHIATRIC: Normal affect Course Vital Signs Vital signs: Vital Signs Temperature 98.0 F 07/21/23 17:51 Pulse Rate 106 H 07/21/23 17:51 Respiratory Rate 16 07/21/23 17:51 Blood Pressure 105/67 07/21/23 17:51 Pulse Oximetry 90 07/21/23 17:51 Temperature 97.6 F 07/21/23 18:32 Pulse Rate 80
[2023-07-21 21:13] VITALS: BP 106/71; PULSE 81; RESP 17; O2SAT 98
== END 2023-07-21 21:14 | disposition home or self-care (01) ==
PROVIDERS: Emergency Medicine; Emergency Provider Emergency Medicine; PCP Emergency Medicine
DX: E87.1 Hypo-osmolality and hyponatremia (principal); I50.9 Heart failure, unspecified; I48.91 Unspecified atrial fibrillation; I25.10 Atherosclerotic heart disease of native coronary artery without angina pectoris; E11.9 Type 2 diabetes mellitus without complications; E78.5 Hyperlipidemia, unspecified; G47.33 Obstructive sleep apnea (adult) (pediatric); Z95.1 Presence of aortocoronary bypass graft; Z87.891 Personal history of nicotine dependence; Z79.82 Long term (current) use of aspirin; Z79.01 Long term (current) use of anticoagulants; Z79.4 Long term (current) use of insulin
CPT/HCPCS: 36415; 80053; 83880; 85025; 85610; 85730; 93005; 99284

== ENCOUNTER 2023-08-06 18:05 | Emergency (ER) | payer MEDICARE, SELFPAY ==
--- NOTE | 2023-08-06 18:16 | PC.NURSE ---
Stemi [address] [facility] - [facility]
[2023-08-06 18:17] LABS: Glucose Point of Care 63 mg/dl (65-105)
--- NOTE | 2023-08-06 18:21 | PC.NURSE ---
stemi canceled ann-marie sent [facility] notified
[2023-08-06 18:24] LABS: Glucose Point of Care 78 mg/dl (65-105)
--- NOTE | 2023-08-06 18:30 | ED.CPR ---
HPI - CPR General Chief Complaint: Cardiac Arrest/CPR Stated Complaint: cardiac arrest This is a 73 year old male who presents to the emergency department as a medical resuscitation via EMS with chief complaint of cardiac arrest. EMS was called to the scene for report of shortness of breath x3 days. He was found to be hypoglycemic at 51mg/dL for which D10 infusion was initiated. Patient was loaded into the ambulance and shortly thereafter, at approximately 5:40pm was noted to become unresponsive and lose pulses. Resuscitative efforts started. Other than the initiation of compressions (currently via Bernabe device), they administered 3 total doses of epinephrine. They did defibrillate x1 for report of a shockable rhythm. Initially an LMA was placed, replaced with ETT, 7.5. They did regain pulses en route and an organized rhythm was noted, thought to be a STEMI and reported via radio as such. Patient has history of [place] and pacemaker/defibrillator. Source: EMS Mode of arrival: EMS Limitations: clinical condition Related Data Home Medications Medication Instructions Recorded Confirmed aspirin 81 mg tablet,delayed 81 mg PO DAILY 03/27/23 07/29/23 release (Adult Aspirin Regimen) duloxetine 60 mg capsule,delayed 60 mg PO DAILY 04/16/23 07/29/23 release potassium chloride 20 mEq 20 meq PO BID 04/16/23 07/29/23 tablet,extended release(part/cryst) (Klor-Con M) triamcinolone acetonide 0.5 % 1 applic topical TID PRN Rash 04/16/23 07/29/23 topical ointment bumetanide 2 mg tablet 2 mg PO BID 05/09/23 07/29/23 guaifenesin 600 mg tablet, 600 mg PO BID 05/09/23 07/29/23 extended release 12 hr pantoprazole 40 mg tablet,delayed 40 mg PO BID 05/09/23 07/29/23 release polyethylene glycol 3350 4 gram 4 g PO DAILY PRN 05/09/23 07/29/23 oral powder packet rivaroxaban 20 mg tablet (Xarelto) 20 mg PO QPM 05/09/23 07/29/23 sucralfate 1 gram tablet 1 g PO QID 05/09/23 07/29/23 spironolactone 25 mg tablet 25 mg PO DAILY 07/08/23 07/29/23 atorvastatin 40 mg tablet 40 mg PO DAILY 07/29/23 metoprolol tartrate 25 mg tablet 25 mg PO DAILY 07/29/23 07/29/23 Allergies Allergy/AdvReac Type Severity Reaction Status Date / Time No Known Allergies Allergy Verified 07/29/23 13:29 [facility] Past Medical History Medical History Afib CAD (coronary artery disease) CHF (congestive heart failure) Constipation Diabetes mellitus Family history of colon cancer in father HLD (hyperlipidemia) Low iron stores Obstructive sleep apnea Surgical History Surgical History S/P CABG (coronary artery bypass graft) Family History Family History Mother Patient's mother is , Onset Age: 55 Father Family history of malignant neoplasm, Onset Age: 63 Social History Social History Smoking packs per day: 0.5 Smoking cigarettes per day: 10.0 Years smoked: 10 Smoking pack-years: 5.00 Smoking status: Former smoker Tobacco type: cigarettes Smoking end date: 06/09/06 Alcohol intake: current Substance use: never Substance use type: does not use Lack of Transportation: No Lack of Food: Never True Current Housing: I Have Housing Concerned About Future Housing: No Difficulty Paying Gas/Electric Bills: No Difficulty Paying for Meds: No Currently Unemployed: No Education: Associate Degree Difficulty w/ Childcare or Family Care: No Living arrangements: with family Occupation/Education: retired Additional occupation/education comments: 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 Denies any occupational exposure. Spiritual care concerns: No Exam Narrative: Vitals: Patient does not have vital signs General: Patient is unresponsive and pale Head:
== END 2023-08-06 22:22 | disposition expired ==
PROVIDERS: Emergency Provider Student in an Organized Health Care Education/Training Program; PCP Emergency Medicine
DX: I49.01 Ventricular fibrillation (principal); I46.9 Cardiac arrest, cause unspecified; E11.649 Type 2 diabetes mellitus with hypoglycemia without coma; I48.91 Unspecified atrial fibrillation; I25.10 Atherosclerotic heart disease of native coronary artery without angina pectoris; I50.9 Heart failure, unspecified; E78.5 Hyperlipidemia, unspecified; G47.33 Obstructive sleep apnea (adult) (pediatric); Z95.1 Presence of aortocoronary bypass graft; Z87.891 Personal history of nicotine dependence; Z79.82 Long term (current) use of aspirin; Z79.01 Long term (current) use of anticoagulants; Z79.4 Long term (current) use of insulin
CPT/HCPCS: 82948; 92950; 96374; 96375; 99285; J0153; J0171; J7030